=== PATIENT | male | born 1980 | race Caucasian/White ===

== ENCOUNTER 2019-01-10 15:35 | Emergency (ER) | payer MEDICAID, OTHER ==
[~2019-01-10] VITALS: Wt 67.0 kg
--- NOTE | 2019-01-10 15:55 | ERD ---
ER Documentation Chief Complaint Chief Complaint VOMITING X 2 DAYS, INSULIN DEPENDENT, LAST USE 2 DAYS AGO HPI Patient is a 38-year-old male, presenting to the ER because of vomiting for the last 1 to 2 days, did not take his insulin for the last 2days. He denies fever, chills, neck pain, chest pain, complains of epigastric abdominal discomfort after vomiting, complains of chronic diarrhea, denies hematemesis/hematochezia, denies dysuria. He smokes and drinks, denies illicit drug Past medical history: Diabetes mellitus Past surgical history: Appendectomy ROS All systems reviewed and are negative except as per history of present illness. Medications Home Meds Reported Medications Insulin Glargine,Hum.rec.anlog (Basaglar Kwikpen U-100) 100 Unit/1 Ml Insuln.pen, 7 UNIT SC QHS, EA 01/10/19 Insulin Lispro (Humalog) 100 Unit/1 Ml Cartridge, 7 UNIT SQ BID, EA 01/10/19 Allergies Allergies: Coded Allergies: No Known Allergy (Unverified , 01/10/19) Physical Exam Vitals Vital Signs Date Temp Pulse Resp B/P (MAP) Pulse Ox O2 O2 Flow FiO2 Time Delivery Rate 01/10/19 98.1 87 16 124/75 100 Room Air 19:02 (91) 01/10/19 98.1 88 12 143/90 99 Room Air 18:37 (107) 01/10/19 98.1 100 14 134/88 100 Room Air 17:44 (103) 01/10/19 98.1 92 20 135/98 100 Room Air 16:04 (110) 01/10/19 98.1 111 20 137/78 99 15:43 (97) Physical Exam Const: No acute distress. Dehydrated Head: Atraumatic. Eyes: Normal Conjunctiva. ENT: Normal External Ears, Nose and Mouth. Neck: Full range of motion. No meningismus. Resp: Clear to auscultation bilaterally. Cardio: Regular tachycardic. Abd: Soft, non distended, normal bowel sounds, mild epigastric discomfort, no rigidity/rebound/CVA tenderness Skin: No petechiae or rashes. Back: No midline or flank tenderness. Ext: No cyanosis, or edema. Neur: Awake and alert. No focal deficit Psych: Normal Mood and Affect. Result Diagram: 01/10/19 1602 01/10/19 1602 Results 24 hrs Laboratory Tests Test 01/10/19 15:55 01/10/19 16:02 01/10/19 18:53 Bedside Glucose 428 mg/dL 334 mg/dL White Blood Count 11.5 10^3/ul Red Blood Count 4.95 10^6/ul Hemoglobin 12.7 g/dl Hematocrit 38.8 % Mean Corpuscular Volume 78.4 fl Mean Corpuscular Hemoglobin 25.7 pg Mean Corpuscular 32.7 g/dl Hemoglobin Concent Red Cell Distribution Width 12.3 % Platelet Count 589 10^3/UL Mean Platelet Volume 9.1 fl Immature Granulocytes % 0.700 % Neutrophils % 80.9 % Lymphocytes % 13.0 % Monocytes % 3.4 % Eosinophils % 1.0 % Basophils % 1.0 % Nucleated Red Blood Cells % 0.0 /100WBC Immature Granulocytes # 0.080 10^3/ul Neutrophils # 9.3 10^3/ul Lymphocytes # 1.5 10^3/ul Monocytes # 0.4 10^3/ul Eosinophils # 0.1 10^3/ul Basophils # 0.1 10^3/ul Nucleated Red Blood Cells # 0.0 10^3/ul Urine Color YELLOW Urine Clarity SLIGHTLY CLOUDY Urine pH 6.0 Urine Specific Elfrida 1.031 Urine Ketones 1+ mg/dL Urine Nitrite NEGATIVE mg/dL Urine Bilirubin NEGATIVE mg/dL Urine Urobilinogen NEGATIVE mg/dL Urine Leukocyte Esterase NEGATIVE Darell/ul Urine Microscopic RBC 1 /HPF Urine Microscopic WBC 7 /HPF Urine Squamous FEW /HPF Epithelial Cells Urine Hemoglobin NEGATIVE mg/dL Urine Glucose 3+ mg/dL Urine Total Protein NEGATIVE mg/dl Blood Gas Specimen Source Blood venous Arterial Blood Date Drawn 01/10/2019 4:00:51 PM Arterial Blood Gas VENOUS LINE Puncture Site Armando Test N/A Venous Blood pH 7.501 Venous Blood pCO2 36.8 mmHG (Temp Corrected) Venous Blood pO2 49.7 mmHG (Temp Corrected) Venous Blood HCO3 28.1 mmol/L Venous Blood Oxygen 86.9 mmHG Saturation Venous Blood Base Excess 4.9 mmol/L Venous Blood Total 13.6 g/dl Hemoglobin Venous Blood Oxyhemoglobin 85.4 % Venous Blood Methemoglobin 0.1 % Carboxyhemoglobin 1.6 % Blood Gas Temperature 37.0 C Blood Gas Modality ROOM AIR FiO2 21.0 % Blood Gas Notified Whom RT Blood Gas Notified Time 01/10/2019 4:07:18 PM Sodium Level 137 mmol/L Potassium Level 4.0 mmol/L Chloride Level 96 mmol/L Carbon Dioxide Level 28 mmol/L Anion Gap 13 Blood Urea Nitrogen 16 mg/dl Creatinine 0.64 mg/dl Est Glomerular Filtrat > 60 mL/min Rate mL/min Glucose Level 462 mg/dl Calcium Level 10.1 mg/dl Phosphorus Level 4.2 mg/dl Magnesium Level 1.9 mg/dl Current Medications Medications Dose Sig/Carolyn Start Time Status Last (Trade) Ordered Route PRN Stop Time Admin Dose Reason Admin Sodium 670 ml @ ONCE ONCE 01/10/19 DC 01/10/19 Chloride 670 mls/hr IV 16:00 16:11 01/10/19 16:59 Morphine 2 mg ONCE STAT 01/10/19 DC 01/10/19 Sulfate IV 16:26 16:44 (morphine) 01/10/19 16:33 Ondansetron 4 mg ONCE STAT 01/10/19 DC 01/10/19 HCl (Zofran IV 16:26 16:44 Inj) 01/10/19 16:33 Sodium 1,000 ml @ Q1H ONCE 01/10/19 DC 01/10/19 Chloride 1,000 mls/hr IV 17:00 17:10 01/10/19 17:59 Insulin 8 unit ONCE ONCE 01/10/19 DC 01/10/19 Human SC 18:30 18:31 Lispro 01/10/19 18:31 (Humalog) Diagnostic 1 ea 2 HRS AFTER 01/10/19 DC Test (Pha) HUMALOG ONCE 18:30 (Accu-Chek) XX 01/10/19 18:31 Procedures/MDM MEDICAL MAKING DECISION: The patient is a 38-year-old male, presenting with acute diabetic hyperglycemia, acute dehydration he was treated with approximately 2 L normal saline., 8 units of lock subcu for acute hyperglycemia, morphine 2 mg IV for pain, Zofran formula IV for nausea with good response, is stable for outpatient follow-up The differential diagnoses considered include but are not limited to HHS, DKA, dehydration, electrolyte imbalance, medical noncompliance, dietary noncompliance Departure Diagnosis: Primary Impression: Hyperglycemia Additional Impression: Dehydration Condition: Good Comments I discussed the findings with the patient. I advised the patient to follow-up with the primary physician in about 2-3 days, sooner if needed and return if any concern. Disclaimer: Inadvertent spelling and grammatical errors are likely due to EHR/dictation software use and do not reflect on the overall quality of patient care. Also, please note that the electronic time recorded on this note does not necessarily reflect the actual time of the patient encounter. MIREYA GOMEZ MD January 10, 2019 15:55
[2019-01-10] MEDS ORDERED: SOD CHLORIDE 0.9% 670 ML IV ONE (16:00)
[2019-01-10] MEDS ORDERED: morphine 2 MG INJ IV STA (16:26)
[2019-01-10] MEDS ORDERED: ONDANSETRON 4 MG INJ IV STA (16:26)
[2019-01-10] MEDS ORDERED: INSU100C SQ (16:49)
[2019-01-10] MEDS ORDERED: INSU100I33 SC (16:50)
[2019-01-10] MEDS ORDERED: SOD CHLORIDE 0.9% 1,000 ML IV ONE (17:00)
[2019-01-10] MEDS ORDERED: INSULIN LISPRO 100 UNIT/ML VIAL SC ONE (18:30)
[2019-01-10] MEDS ORDERED: ACCU-CHEK XX ONE (18:30)
[2019-01-10 19:02] VITALS: BP 124/75; PULSE 87; RESP 16
== END 2019-01-10 19:04 | disposition home or self-care (01) ==
LOC: E/R 15:35
DX: E11.65 Type 2 diabetes mellitus with hyperglycemia (principal); E86.0 Dehydration; Z79.4 Long term (current) use of insulin
CPT/HCPCS: 36415; 80048; 81001; 82803; 82962; 83735; 84100; 85025; 96372; 96374; 96375; J1815; J2270; J2405; J7030; Z7502; 81003